=== PATIENT | male | born 1940 | race Caucasian/White ===

== ENCOUNTER 2021-03-25 22:54 | Inpatient (IN) | payer OTHER, MEDICARE ==
[2021-03-26] MEDS ORDERED: Ketorolac Tromethamine 30 MG/ML VIAL ONE (00:17)
[2021-03-26] MEDS ORDERED: Morphine 4 MG/ML VIAL ONE (00:17)
[2021-03-26] MEDS ORDERED: Morphine 2 MG/ML VIAL SLOW IVP PRN (00:45)
[2021-03-26] MEDS ORDERED: Dextrose 50% Abboject 50 ML SYRINGE SLOW IVP PRN (00:45)
[2021-03-26] MEDS ORDERED: Dextrose 5% in Water 1,000 ML IV PRN (00:45)
[2021-03-26] MEDS ORDERED: Ondansetron ODT 4 MG TAB PO PRN (00:45)
[2021-03-26] MEDS ORDERED: Ondansetron PF 4 MG/2 ML Vial IVP PRN (00:45)
[2021-03-26] MEDS ORDERED: traMADol HCl 50 MG TAB PO PRN (00:49)
[2021-03-26] MEDS ORDERED: Cyclobenzaprine 10 MG TAB PO PRN (00:49)
[2021-03-26 00:54] LABS: #Basophils 0.1 thou/uL (0.0-0.2); #Eosinphils 0.2 thou/uL (0.0-0.7); #Lymphocytes 1.3 thou/uL (1.20-3.40); #Monocytes 0.6 thou/uL (0.11-0.59); #Neutrophils 7.5 thou/uL (1.40-6.50); %Eosinophils 2.3 % (0.0-10.0); %Lymphocytes 13.3 % (21.0-51.0); %Monocytes 6.3 % (0.0-10.0); Hemoglobin 11.5 g/dL (14.0-18.0); Mean Corpuscular HGB CONC 32.4 g/dL (32.0-36.0); Mean Corpuscular Hemoglobin 33.4 pg (27.0-31.0); Platelet Count 191 thou/uL (130-400); RBC Distribution Width 11.4 % (11.5-14.5); Red Blood Cell (RBC) Count 3.44 mill/uL (4.70-6.10); White Blood Cell (WBC) Count 9.8 thou/uL (4.8-10.8)
[2021-03-26 01:05] LABS: INR-International Normal Ratio 1.1; PTT 36.6 sec (22.9-36.1); Prothrombin Time 14.2 sec (12.0-14.7)
[2021-03-26 01:10] LABS: ALT (SGPT) 19 U/L (8-55); AST (SGOT) 25 U/L (5-34); Albumin 3.7 g/dL (3.4-4.8); Alkaline Phosphatase 104 U/L (40-110); Anion Gap 13 mmol/L (10-20); BUN (Urea Nitrogen) 15 mg/dL (8.4-25.7); Bilirubin, Total 0.4 mg/dL (0.2-1.2); Calc. Creatinine Clearance 0 mL/min (70-130); Calcium 9.4 mg/dL (7.8-10.44); Carbon Dioxide 23 mmol/L (23-31); Chloride 101 mmol/L (98-107); Glucose 123 mg/dL (83-110); Potassium 4.4 mmol/L (3.5-5.1); Protein, Total 6.7 g/dL (5.8-8.1); Sodium 133 mmol/L (136-145)
[2021-03-26] MEDS: Sodium Chloride 0.9% 1,000 ML IV SCH ×2 (02:57→08:15)
[2021-03-26 03:40] VITALS: BMI 32.7
[2021-03-26 05:04] LABS: SARS-CoV-2 NAA Rapid Test Not Detected (NotDetected)
[2021-03-26] MEDS: Acetaminophen 325 MG TAB PO SCH ×4 (06:09→18:09)
[2021-03-26] MEDS: hydrALAZINE 20 MG/ML VIAL SLOW IVP PRN (06:31)
[2021-03-26 07:43] LABS: #Eosinphils 0.2 thou/uL (0.0-0.7); #Lymphocytes 1.3 thou/uL (1.20-3.40); #Monocytes 0.8 thou/uL (0.11-0.59); #Neutrophils 6.8 thou/uL (1.40-6.50); %Basophils 0.2 % (0.0-1.0); %Eosinophils 2.5 % (0.0-10.0); %Lymphocytes 14.3 % (21.0-51.0); %Monocytes 8.6 % (0.0-10.0); %Neutrophils 74.4 % (42.0-75.0); Hemoglobin 11.5 g/dL (14.0-18.0); Mean Corpuscular HGB CONC 33.8 g/dL (32.0-36.0); Mean Corpuscular Hemoglobin 34.6 pg (27.0-31.0); Mean Platelet Volume 7.2 fL (7.4-10.4); Platelet Count 165 thou/uL (130-400); RBC Distribution Width 11.5 % (11.5-14.5); Red Blood Cell (RBC) Count 3.33 mill/uL (4.70-6.10); White Blood Cell (WBC) Count 9.1 thou/uL (4.8-10.8)
[2021-03-26] MEDS: Famotidine 20 MG TAB PO SCH ×3 (07:58→20:38)
[2021-03-26 08:02] LABS: Anion Gap 12 mmol/L (10-20); BUN (Urea Nitrogen) 15 mg/dL (8.4-25.7); Calc. Creatinine Clearance 84 mL/min (70-130); Calcium 8.7 mg/dL (7.8-10.44); Carbon Dioxide 22 mmol/L (23-31); Chloride 103 mmol/L (98-107); Glucose 117 mg/dL (83-110); Potassium 4.7 mmol/L (3.5-5.1); Sodium 132 mmol/L (136-145)
[2021-03-26] MEDS: Ibuprofen 800 MG TAB PO PRN ×2 (08:12→16:36)
[2021-03-26] MEDS ORDERED: CEFAZOLIN 2 GM in Premix Bag 1 BAG IVPB SCH (08:15)
[2021-03-26] MEDS ORDERED: Tranexamic Acid 1,000 MG in Sodium Chloride 0.9% 250 ML 250 ML IVPB SCH (08:30)
[2021-03-26] MEDS ORDERED: Morphine 2 MG/ML VIAL ONE (09:38)
[2021-03-26] MEDS ORDERED: Sodium Chloride 0.9% 100 ML ONE (09:39)
[2021-03-26] MEDS ORDERED: Sodium Chloride 0.9% 0 ML ONE (09:39)
[2021-03-26] MEDS ORDERED: Tranexamic Acid 1,000 MG/10 ML VIAL ONE (09:39)
[2021-03-26] MEDS ORDERED: Phenylephrine 10 MG/ML VIAL ONE (11:02)
[2021-03-26] MEDS ORDERED: Fentanyl 100 MCG/2 ML VIAL ONE ×2 (11:02→13:32)
[2021-03-26] MEDS ORDERED: Glycopyrrolate 0.2 MG/ML 5 ML SYRINGE ONE (11:09)
[2021-03-26] MEDS ORDERED: Lidocaine 1% PF 5 ML VIAL ONE (11:09)
[2021-03-26] MEDS ORDERED: Rocuronium Bromide 10 MG/ML (10ML VIAL) ONE (11:09)
[2021-03-26] MEDS ORDERED: PROPOFOL 200 MG/20 ML VIAL ONE (11:09)
[2021-03-26] MEDS ORDERED: Ondansetron HCl/PF 4 MG/2 ML Vial IVP PRN (12:19)
[2021-03-26] MEDS ORDERED: Promethazine HCl 25 MG/ML VIAL IM PRN (12:19)
[2021-03-26] MEDS ORDERED: Promethazine HCl 25 MG/ML VIAL IVPB PRN (12:19)
[2021-03-26] MEDS: Folic Acid 1 MG TAB PO SCH (16:36)
[2021-03-26] MEDS: Sodium Chloride 1 GM TAB PO SCH (16:36)
[2021-03-26] MEDS: CEFAZOLIN 2 GM in Premix Bag 1 BAG IVPB SCH (18:08)
[2021-03-26] MEDS: Atorvastatin Calcium 10 MG TAB PO SCH (20:38)
[2021-03-26] MEDS: Carvedilol 25 MG TAB PO SCH (20:38)
[2021-03-26] MEDS ORDERED: Pravastatin Sodium 40 MG TAB PO SCH (21:00)
[2021-03-27] MEDS: CEFAZOLIN 2 GM in Premix Bag 1 BAG IVPB SCH (01:45)
[2021-03-27] MEDS: Acetaminophen 325 MG TAB PO SCH ×4 (01:46→17:36)
[2021-03-27] MEDS: Clopidogrel Bisulfate 75 MG TAB PO SCH ×2 (10:17→10:18)
[2021-03-27] MEDS: Carvedilol 25 MG TAB PO SCH ×2 (10:18→19:57)
[2021-03-27] MEDS: Amlodipine 10 MG TAB PO SCH (10:18)
[2021-03-27] MEDS: Folic Acid 1 MG TAB PO SCH (10:18)
[2021-03-27] MEDS: Sodium Chloride 1 GM TAB PO SCH (10:19)
[2021-03-27] MEDS: traMADol HCl 50 MG TAB PO PRN ×2 (11:10→20:01)
[2021-03-27] MEDS: Atorvastatin Calcium 10 MG TAB PO SCH (19:57)
[2021-03-28] MEDS: Acetaminophen 325 MG TAB PO SCH ×5 (00:35→23:58)
[2021-03-28] MEDS: Clopidogrel Bisulfate 75 MG TAB PO SCH (10:10)
[2021-03-28] MEDS: Sodium Chloride 1 GM TAB PO SCH (10:10)
[2021-03-28] MEDS: Carvedilol 25 MG TAB PO SCH ×2 (10:11→21:36)
[2021-03-28] MEDS: Folic Acid 1 MG TAB PO SCH (10:11)
[2021-03-28] MEDS: Amlodipine 10 MG TAB PO SCH (10:11)
[2021-03-28] MEDS: Senokot S 8.6-50 MG TAB PO SCH (21:36)
[2021-03-28] MEDS: Atorvastatin Calcium 10 MG TAB PO SCH (21:38)
[2021-03-28] MEDS: traMADol HCl 50 MG TAB PO PRN (23:59)
[2021-03-29] MEDS: hydrALAZINE 20 MG/ML VIAL SLOW IVP PRN (00:06)
[2021-03-29] MEDS: Acetaminophen 325 MG TAB PO SCH ×2 (06:14→12:05)
[2021-03-29] MEDS: traMADol HCl 50 MG TAB PO PRN (06:15)
[2021-03-29] MEDS: Amlodipine 10 MG TAB PO SCH (08:42)
[2021-03-29] MEDS: Carvedilol 25 MG TAB PO SCH (08:43)
[2021-03-29] MEDS: Sodium Chloride 1 GM TAB PO SCH (08:43)
[2021-03-29] MEDS: Senokot S 8.6-50 MG TAB PO SCH (08:43)
[2021-03-29] MEDS: Folic Acid 1 MG TAB PO SCH (08:43)
[2021-03-29] MEDS ORDERED: Polyethylene Glycol 3350 17 GM Packet PO SCH (09:00)
[2021-03-29] MEDS: Clopidogrel Bisulfate 75 MG TAB PO SCH (09:55)
[2021-03-29 12:10] VITALS: BP 125/68; TEMP 97.5
== END 2021-03-29 14:30 | disposition swing bed (61) | DRG 482 ==
LOC: ERS 22:54 → SURG B 03-26 00:54
PROVIDERS: ADMIT Surgery; ATTEND Surgery
PROC: 0QS706Z Reposition Left Upper Femur with Intramedullary Internal Fixation Device, Open Approach (ICD-10-PCS; principal; 2021-03-26)
DX: S72.142A Displaced intertrochanteric fracture of left femur, initial encounter for closed fracture (principal); Z20.822 Contact with and (suspected) exposure to COVID-19; E78.5 Hyperlipidemia, unspecified; I10 Essential (primary) hypertension; I73.9 Peripheral vascular disease, unspecified; W01.0XXA Fall on same level from slipping, tripping and stumbling without subsequent striking against object, initial encounter; Y92.009 Unspecified place in unspecified non-institutional (private) residence as the place of occurrence of the external cause; Z98.49 Cataract extraction status, unspecified eye; Z79.899 Other long term (current) drug therapy; Z95.0 Presence of cardiac pacemaker; Z79.82 Long term (current) use of aspirin; Z79.02 Long term (current) use of antithrombotics/antiplatelets; Z87.891 Personal history of nicotine dependence
CPT/HCPCS: 36415; 70450; 71045; 72170; 76000; 80053; 83880; 84484; 85025; 85610; 85730; 93005; 96374; 96375; C1713; G0390; J0360; J0690; J1885; J2270; J2370; J2704; J3010; J3490; J7050; U0002

== ENCOUNTER 2022-05-23 11:13 | Emergency (ER) | payer OTHER, MEDICARE ==
[2022-05-23 14:43] LABS: #Basophils 0.1 thou/uL (0.0-0.2); #Eosinphils 0.2 thou/uL (0.0-0.7); #Lymphocytes 0.9 thou/uL (1.20-3.40); #Monocytes 0.7 thou/uL (0.11-0.59); #Neutrophils 7.1 thou/uL (1.40-6.50); %Basophils 0.8 % (0.0-1.0); %Eosinophils 2.4 % (0.0-10.0); %Lymphocytes 9.9 % (21.0-51.0); %Monocytes 7.8 % (0.0-10.0); %Neutrophils 79.1 % (42.0-75.0); Hemoglobin 8.5 g/dL (14.0-18.0); Mean Corpuscular HGB CONC 32.4 g/dL (32.0-36.0); Mean Corpuscular Hemoglobin 36.1 pg (27.0-31.0); Mean Platelet Volume 7.7 fL (7.4-10.4); Platelet Count 126 10x3/uL (130-400); Red Blood Cell (RBC) Count 2.36 mill/uL (4.70-6.10)
[2022-05-23 15:01] LABS: ALT (SGPT) 31 U/L (8-55); AST (SGOT) 38 U/L (5-34); Albumin 3.1 g/dL (3.4-4.8); Alkaline Phosphatase 94 U/L (40-110); Anion Gap 10 mmol/L (10-20); BUN (Urea Nitrogen) 15 mg/dL (8.4-25.7); Bilirubin, Total 0.7 mg/dL (0.2-1.2); Calc. Creatinine Clearance 0 mL/min (70-130); Calcium 8.5 mg/dL (7.8-10.44); Carbon Dioxide 24 mmol/L (23-31); Chloride 104 mmol/L (98-107); Estimated GFR 66; Globulin 2.5 g/dL (2.4-3.5); Glucose 133 mg/dL (83-110); Potassium 4.2 mmol/L (3.5-5.1); Protein, Total 5.6 g/dL (5.8-8.1); Sodium 134 mmol/L (136-145)
[2022-05-23 15:17] LABS: MDiff Complete? YES; Macrocytosis SLIGHT = 6-15 cells (100X) (0-5/hpf); Platelet Morphology Comment Appears Decreased; Polychromasia SLIGHT = 2-3 cells (100X) (0-2/hpf)
[2022-05-23 17:17] LABS: Hemoglobin 7.8 g/dL (14.0-18.0)
== END 2022-05-23 20:35 ==
LOC: ERS 11:13
DX: S32.492A Other specified fracture of left acetabulum, initial encounter for closed fracture (principal); I10 Essential (primary) hypertension; E78.5 Hyperlipidemia, unspecified; W01.198A Fall on same level from slipping, tripping and stumbling with subsequent striking against other object, initial encounter
CPT/HCPCS: 36415; 70450; 71045; 72125; 72170; 80053; 85025

== ENCOUNTER 2024-06-19 00:54 | Inpatient (IN) | payer MEDICARE ==
[2024-06-19 01:26] VITALS: BMI 21.7
[2024-06-19] MEDS ORDERED: Acetaminophen 650 MG Suppository PR PRN (01:42)
[2024-06-19] MEDS ORDERED: Ondansetron PF 4 MG/2 ML Vial IVP PRN (01:42)
[2024-06-19] MEDS ORDERED: Calcium Carbonate 500 MG ChewTAB PO PRN (01:42)
[2024-06-19] MEDS ORDERED: Ondansetron ODT 4 MG TAB PO PRN (01:42)
[2024-06-19 03:26] LABS: #Basophils 0.09 10x3/uL (0.0-0.2); %Basophils 1.3 % (0.0-1.0); %Eosinophils 5.3 % (0.0-10.0); %Lymphocytes 20.4 % (21.0-51.0); %Monocytes 13.1 % (0.0-10.0); %Neutrophils 59.6 % (42.0-75.0); Hematocrit 32.2 % (42.0-52.0); Hemoglobin 10.7 g/dL (14.0-18.0); Mean Corpuscular HGB CONC 33.2 g/dL (32.0-36.0); Mean Corpuscular Hemoglobin 33.9 pg (27.0-31.0); Mean Corpuscular Volume 101.9 fL (78.0-98.0); Mean Platelet Volume 9.3 fL (7.4-10.4); Platelet Count 154 10x3/uL (130-400); RBC Distribution Width 12.3 % (11.5-14.5); Red Blood Cell (RBC) Count 3.16 mill/uL (4.70-6.10)
[2024-06-19 04:06] LABS: ALT (SGPT) 6 U/L (8-55); AST (SGOT) 19 U/L (5-34); Albumin 3.3 g/dL (3.4-4.8); Alkaline Phosphatase 71 U/L (40-110); Anion Gap 13 mmol/L (10-20); BUN (Urea Nitrogen) 14 mg/dL (8.4-25.7); Bilirubin, Total 0.8 mg/dL (0.2-1.2); Calc. Creatinine Clearance 47 mL/min (70-130); Calcium 8.8 mg/dL (7.8-10.44); Carbon Dioxide 23 mmol/L (23-31); Chloride 96 mmol/L (98-107); Estimated GFR 67; Globulin 2.8 g/dL (2.4-3.5); Glucose 97 mg/dL (83-110); Magnesium 1.9 mg/dL (1.6-2.6); Potassium 4.5 mmol/L (3.5-5.1); Protein, Total 6.1 g/dL (5.8-8.1); Sodium 127 mmol/L (136-145)
[2024-06-19] MEDS: Acetaminophen 325 MG TAB PO SCH (06:09)
[2024-06-19 09:33] LABS: #Basophils 0.08 10x3/uL (0.0-0.2); %Basophils 1.4 % (0.0-1.0); %Eosinophils 4.2 % (0.0-10.0); %Lymphocytes 19.7 % (21.0-51.0); %Monocytes 9.7 % (0.0-10.0); %Neutrophils 64.8 % (42.0-75.0); Hematocrit 32.8 % (42.0-52.0); Hemoglobin 10.9 g/dL (14.0-18.0); Mean Corpuscular HGB CONC 33.2 g/dL (32.0-36.0); Mean Corpuscular Volume 102.2 fL (78.0-98.0); Mean Platelet Volume 9.2 fL (7.4-10.4); Platelet Count 157 10x3/uL (130-400); RBC Distribution Width 12.6 % (11.5-14.5); Red Blood Cell (RBC) Count 3.21 mill/uL (4.70-6.10)
[2024-06-19] MEDS: Famotidine 20 MG TAB PO SCH (10:11)
[2024-06-19] MEDS: Famotidine/PF 20 mg/2ml Vial SLOW IVP SCH (10:12)
[2024-06-19 10:45] LABS: Anion Gap 10 mmol/L (10-20); BUN (Urea Nitrogen) 14 mg/dL (8.4-25.7); Calc. Creatinine Clearance 58 mL/min (70-130); Calcium 9.2 mg/dL (7.8-10.44); Carbon Dioxide 24 mmol/L (23-31); Chloride 98 mmol/L (98-107); Estimated GFR 85; Glucose 103 mg/dL (83-110); Potassium 4.2 mmol/L (3.5-5.1); Sodium 128 mmol/L (136-145)
[2024-06-19] MEDS: Aspirin Chewable 81 MG TAB PO SCH (22:04)
[2024-06-19] MEDS: Sodium Chloride 1 GM TAB PO SCH (23:07)
[2024-06-19] MEDS: Carvedilol 25 MG TAB PO SCH (23:07)
[2024-06-20] MEDS: Folic Acid 1 MG TAB PO SCH (08:37)
[2024-06-20] MEDS: Cholecalciferol 1,000 UNITS (25 MCG) TAB PO SCH (08:38)
[2024-06-20] MEDS: Thiamine 100 MG TAB PO SCH (08:41)
[2024-06-20] MEDS: Amlodipine 5 MG TAB PO SCH (10:01)
[2024-06-20] MEDS ORDERED: Iopamidol-370 76% 500 ML MDV (1 ML CHARGE) ONE (11:12)
[2024-06-20] MEDS: Atorvastatin Calcium 40 MG TAB PO SCH (20:04)
[2024-06-21] MEDS: Dapagliflozin Propanediol 10 MG TAB PO SCH (09:39)
[2024-06-21] MEDS: Lisinopril 10 MG TAB PO SCH (09:40)
[2024-06-21] MEDS: Clopidogrel Bisulfate 75 MG TAB PO SCH (09:40)
[2024-06-21 11:10] LABS: Anion Gap 13 mmol/L (10-20); BUN (Urea Nitrogen) 15 mg/dL (8.4-25.7); Calc. Creatinine Clearance 56 mL/min (70-130); Calcium 9.5 mg/dL (7.8-10.44); Carbon Dioxide 22 mmol/L (23-31); Chloride 98 mmol/L (98-107); Estimated GFR 84; Glucose 113 mg/dL (83-110); Sodium 129 mmol/L (136-145)
[2024-06-22] MEDS: Spironolactone 25 MG TAB PO SCH (09:24)
[2024-06-23 13:26] VITALS: BP 157/66; TEMP 97.9
== END 2024-06-23 16:22 | disposition home or self-care (01) | DRG 71 ==
LOC: 2SE 00:54 → OBSVTOIN 06-20 12:48
PROVIDERS: ADMIT Internal Medicine; ATTEND Internal Medicine
DX: G93.41 Metabolic encephalopathy (principal); E87.1 Hypo-osmolality and hyponatremia; I13.0 Hypertensive heart and chronic kidney disease with heart failure and stage 1 through stage 4 chronic kidney disease, or unspecified chronic kidney disease; I50.42 Chronic combined systolic (congestive) and diastolic (congestive) heart failure; E87.6 Hypokalemia; N18.9 Chronic kidney disease, unspecified; I48.91 Unspecified atrial fibrillation; Z95.0 Presence of cardiac pacemaker; E87.5 Hyperkalemia
CPT/HCPCS: 36415; 70496; 70498; 70551; 80048; 80053; 83735; 83880; 85025; 93306; 93798; 93880; G0378; Q9967